=== PATIENT | female | born 1965 | race Caucasian/White ===

== ENCOUNTER → 2020-09-06 | Outpatient (CLI) | payer OTHER | LOC: HEART 5 09-03 10:00 → MAMO 11:00 → HEART 5 13:21 | DX: Z12.31 Encounter for screening mammogram for malignant neoplasm of breast (principal); Z86.718 Personal history of other venous thrombosis and embolism; E11.9 Type 2 diabetes mellitus without complications | CPT/HCPCS: 77063; 77067 ==

== ENCOUNTER 2020-12-01 11:14 | Emergency (ER) | payer OTHER ==
[2020-12-01 12:22] LABS: HEMOGLOBIN 16.7 gm/dl (12.3-15.3); RED BLOOD COUNT 5.42 M/UL (4.00-5.10); WHITE BLOOD COUNT 13.8 K/UL (4.5-11.0)
[2020-12-01 13:16] LABS: BUN/CREATININE RATIO 21 (0-10)
[2020-12-01] MEDS ORDERED: ELIQUIS 5 MG TAB5 MG PO (17:45)
== END 2020-12-01 17:58 | disposition home or self-care (01) ==
LOC: ER1 11:14
PROVIDERS: Physician Assistant
DX: I82.4Y1 Acute embolism and thrombosis of unspecified deep veins of right proximal lower extremity (principal); F17.200 Nicotine dependence, unspecified, uncomplicated
CPT/HCPCS: 71045; 80053; 82550; 82553; 83874; 84439; 84443; 84484; 85025; 85379; 85610; 93005; 93971; 99284; J2270; Q9967

== ENCOUNTER → 2020-12-10 | Outpatient (CLI) | payer OTHER ==
[~2020-12-10] MED LIST: ELIQUIS 5 MG TAB5 MG PO
== END ==
LOC: EXRD 13:36
DX: I82.221 Chronic embolism and thrombosis of inferior vena cava (principal); I73.9 Peripheral vascular disease, unspecified
CPT/HCPCS: 93925

== ENCOUNTER → 2021-01-07 | Outpatient (CLI) | payer OTHER | LOC: CT 09:47 | DX: I70.203 Unspecified atherosclerosis of native arteries of extremities, bilateral legs (principal); E11.9 Type 2 diabetes mellitus without complications; I10 Essential (primary) hypertension | CPT/HCPCS: 36415; 75635; 82565; 84520; Q9967 ==

== ENCOUNTER → 2021-01-21 | Outpatient (CLI) | payer OTHER ==
[2021-01-21 15:48] LABS: HEMOGLOBIN 15.7 gm/dl (12.3-15.3); RED BLOOD COUNT 5.27 M/UL (4.00-5.10); WHITE BLOOD COUNT 14.1 K/UL (4.5-11.0)
[2021-01-21 16:07] LABS: BUN/CREATININE RATIO 18 (0-10)
== END ==
LOC: LAB 14:51
PROVIDERS: Physician Assistant
DX: Z01.812 Encounter for preprocedural laboratory examination (principal); I82.509 Chronic embolism and thrombosis of unspecified deep veins of unspecified lower extremity; I70.269 Atherosclerosis of native arteries of extremities with gangrene, unspecified extremity; F17.210 Nicotine dependence, cigarettes, uncomplicated; Z79.899 Other long term (current) drug therapy; Z79.01 Long term (current) use of anticoagulants; Z79.02 Long term (current) use of antithrombotics/antiplatelets
CPT/HCPCS: 36415; 80048; 85027; 85610